=== PATIENT | male | born 1965 | race Caucasian/White ===

== ENCOUNTER 2022-02-05 06:43 | Day surgery (SDC) | payer BC ==
[~2022-02-05] VITALS: Ht 180.3 cm; Wt 132.0 kg
[~2022-02-05 06:43] MED LIST: LEVSOD100 PO; METO50ER PO; OMEP20ER PO; PRAV20; TRAZ100 PO
--- NOTE | 2022-02-05 07:29 | NUR ---
Ambulatory in Day Surgery. Patient states colon prep results clear. History, Chart, Medications and Allergies reviewed before start of procedure.Patient confirms NPO status and agrees with scheduled surgery. Pre-Op teaching done. Pt verbalizes understanding. Patient States Post-Procedure ride home has been arranged. Lungs clear T/O to Auscultation, RN AND DR AWARE OF PT HAVING SLEEP APNEA.
--- NOTE | 2022-02-05 08:41 | NUR ---
02/05/22 0841 Francie Richter HISTORY,CHART, MEDICATIONS AND ALLERGIES REVIEWED BEFORE START OF PROCEDURE. PATIENT CONFIRMS NPO STATUS AND AGREES WITH SCHEDULED PROCEDURE. 3-LEAD EKG REVIEWED WITH PHYSICIAN PRIOR TO START OF PROCEDURE. MONITOR INTACT WITH CONTINUOUS PULSE OXIMETRY, 3-LEAD EKG, CAPNOGRAPHY AND INTERMITTENT BP. SUPPLEMENTAL O2 TO BE TITRATED THROUGHOUT PROCEDURE TO MAINTAIN O2 SATURATION ABOVE 90% VIA POM MASK PATIENT DETERMINED TO BE ASA APPROPRIATE FOR MODERATE SEDATION PRIOR TO START OF PROCEDURE BY DR. CALHOUN
--- NOTE | 2022-02-05 09:05 | NUR ---
Patient up to Ambulate independently. Gait steady. Discharge instructions reviewed with patient. Patient verbalizes understanding. Copy given to patient to take home. Patient States Post-Procedure ride home has been arranged. Discharged via wheelchair to private car for ride home.
== END 2022-02-05 23:53 | disposition home or self-care (01) ==
LOC: ORSCMMR 06:43 → ORD 08:00 → ORSCMMR 08:00
PROVIDERS: Internal Medicine Gastroenterology
PROC: 0DBM8ZX Excision of Descending Colon, Via Natural or Artificial Opening Endoscopic, Diagnostic (ICD-10-PCS; principal; 2022-02-05 08:00)
DX: Z12.11 Encounter for screening for malignant neoplasm of colon (principal); Z86.010 Personal history of colon polyps; D12.4 Benign neoplasm of descending colon; Z80.0 Family history of malignant neoplasm of digestive organs; I10 Essential (primary) hypertension; K21.9 Gastro-esophageal reflux disease without esophagitis; E03.9 Hypothyroidism, unspecified; G47.30 Sleep apnea, unspecified; E66.01 Morbid (severe) obesity due to excess calories; Z68.41 Body mass index [BMI] 40.0-44.9, adult; Z79.899 Other long term (current) drug therapy
CPT/HCPCS: 88305; J2250; J3010; J7120